=== PATIENT | male | born 1975 | race American Indian/Alaskan Native ===

== ENCOUNTER 2017-10-02 15:59 | Emergency (ER) | payer SELFPAY ==
[2017-10-02] MEDS ORDERED: FLEXERIL PO ONE (17:14)
[2017-10-02] MEDS ORDERED: NORCO 5/325 PO ONE (17:14)
[2017-10-02] MEDS ORDERED: TORADOL IM ONE (17:14)
--- NOTE | 2017-10-02 17:43 | Emergency Department Report ---
ED Back Pain/Injury HPI - General Chief Complaint: Back Pain/Injury Stated Complaint: TREJO/BACK PAIN Time Seen by Provider: 10/02/17 16:58 Source: patient Limitations: No Limitations - History of Present Illness Initial Comments: 42-year-old male with a past medical history chronic back pain since injury in 2015 presents to the hospital complaining headache and back pain. Patient denies any recent injury or trauma. Patient's had a global headache that is intermittent for the last 2 weeks that is throbbing in nature. He denies nausea , vomiting, arm weakness, neck stiffness, blurry vision, or fever. Patient also complaining of exacerbation of chronic left-sided back pain. Patient had a work-related injury in 2015 had a microdiscectomy performed in April 2016 his home town of [place]. Patient recently relocated here does not have a primary care doctor or any specialty physicians. Pain is 9/10 in intensity, constant, worse with palpation left back. It radiates to the neck and patient has chronic ongoing left arm numbness and weakness since initial injury. Denies bowel or fecal incontinence or retention. He has taken Tylenol for pain without relief - Related Data Previous Rx's Medication Instructions Recorded Last Taken Type Cyclobenzaprine [Flexeril] 10 mg PO TID PRN #20 tablet 10/02/17 Unknown Rx HYDROcodone/APAP 5-325 [Dewitt 1 each PO Q6HR PRN #20 tablet 10/02/17 Unknown Rx 5/325] Ibuprofen [Motrin] 800 mg PO Q8HR PRN #30 tablet 10/02/17 Unknown Rx Allergies Allergy/AdvReac Type Severity Reaction Status Date / Time tramadol AdvReac Unknown Verified 10/02/17 16:15 ED Review of Systems ROS: Stated complaint: TREJO/BACK PAIN Other details as noted in HPI Comment: All other systems reviewed and negative ED Past Medical Hx - Past Medical History Previous Medical History?: No - Surgical History Additional Surgical History: Back surgery 04/2016 - Social History Smoking Status: Never Smoker Substance Use Type: None - Medications Home Medications: Home Medications Medication Instructions Recorded Confirmed Last Taken Type Cyclobenzaprine [Flexeril] 10 mg PO TID PRN #20 tablet 10/02/17 Unknown Rx HYDROcodone/APAP 5-325 [Dewitt 1 each PO Q6HR PRN #20 tablet 10/02/17 Unknown Rx 5/325] Ibuprofen [Motrin] 800 mg PO Q8HR PRN #30 tablet 10/02/17 Unknown Rx ED Physical Exam - General Limitations: No Limitations - Other Other exam information: General: No limitations, patient is alert in no acute distress Head exam: Atraumatic, normocephalic Eyes exam: Normal appearance, pupils equal reactive to light, extraocular movements intact ENT: Moist mucous membrane, normal oropharynx Neck exam: Normal inspection, full range of motion, no meningismus Respiratory exam: Clear to auscultation bilateral, no wheezes, rales, crackles Cardiovascular: Normal rate and rhythm, normal heart sounds Abdomen: Soft, nondistended, and nontender, with normal bowel sounds, no rebound, or guarding Extremity: Full range of motion normal inspection no deformity Back: Normal Inspection, full range of motion, mid and left-sided back tenderness with palpation. Neurologic: Alert, oriented x3, cranial nerves intact, 4/5 strength to left leg and decreased sensation to light touch compared to the right leg Psychiatric: normal affect, normal mood Skin: Warm, dry, intact ED Course Vital Signs 10/02/17 16:12 Temperature 99.0 F Pulse Rate 86 Respiratory 16 Rate Blood Pressure 123/84 O2 Sat by Pulse 98 Oximetry - Reevaluation(s) Reevaluation #1: 10/02/17 17:43 toradol, norco, flexeril given ED Medical Decision Making - Medical Decision Making Patient has a headache but without any new neurologic symptoms, blurred vision, or nausea or vomiting to suggest increased intracranial pressure. Patient has exacerbation of chronic back pain without any new injury. Patient be treated symptomatically for pain and advised to follow with customer quality specialist as well as primary care physician - Differential Diagnosis chronic pain, muscle spasm, radiculopathy, headache, tension, migraine Critical Care Time: No Critical care attestation.: If time is entered above; I have spent that time in minutes in the direct care of this critically ill patient, excluding procedure time. ED Disposition Clinical Impression: Headache, Acute exacerbation of chronic low back pain Disposition: TO HOME OR SELFCARE Is pt being admited?: No Does the pt Need Aspirin: No Condition: Stable Instructions: Acute Headache (ED), Low Back Strain (ED) Additional Instructions: Take the medication as prescribed. Follow with the primary care clinic and orthopedic doctor provided. Return if symptoms worsen as indicated by the discharge instructions Prescriptions: Cyclobenzaprine [Flexeril] 10 mg PO TID PRN #20 tablet PRN Reason: Muscle Spasm HYDROcodone/APAP 5-325 [Dewitt 5/325] 1 each PO Q6HR PRN #20 tablet PRN Reason: Pain Ibuprofen [Motrin] 800 mg PO Q8HR PRN #30 tablet PRN Reason: Pain, Moderate (4-6) Referrals: [facility] [Provider Group] - 3-5 Days KVNG KO MD [Staff Physician] - 3-5 Days Time of Disposition: 17:47
[2017-10-02 18:13] VITALS: BP 120/76
== END 2017-10-02 18:12 | disposition home or self-care (01) ==
LOC: ED 15:59
DX: R51 Headache (principal); M54.5 Low back pain; G89.29 Other chronic pain; Z88.6 Allergy status to analgesic agent
CPT/HCPCS: 96372; 99282; J1885